=== PATIENT | female | born 1970 | race African-American/Black ===

== ENCOUNTER 2016-07-15 04:56 | Emergency (ER) | payer MEDICAID ==
[~2016-07-15] VITALS: Ht 162.6 cm; Wt 60.0 kg
[2016-07-15] MEDS ORDERED: AZAT50TA9 PO (05:17)
[2016-07-15] MEDS ORDERED: MOME13HF2 INH (05:17)
[2016-07-15] MEDS ORDERED: ALBUTEROL SULFATE 2.5 MG/3 ML NPPB ONE (05:30)
[2016-07-15 06:10] LABS: BLOOD UREA NITROGEN 9 mg/dL (7-18)
[2016-07-15 06:38] VITALS: BP 122/69
== END 2016-07-15 08:03 | disposition home or self-care (01) ==
LOC: ED 07:36
DX: J45.901 Unspecified asthma with (acute) exacerbation (principal); L03.116 Cellulitis of left lower limb
CPT/HCPCS: 36415; 71010; 80048; 82040; 84703; 85025; 93005; 94640; 99285; J7613

== ENCOUNTER 2016-08-09 04:34 | Emergency (ER) | payer MEDICAID ==
[~2016-08-09] VITALS: Ht 165.1 cm; Wt 55.0 kg
[~2016-08-09 04:34] MED LIST: AZAT50TA9 PO; MOME13HF2 INH
[2016-08-09 04:38] VITALS: BP 131/74
[2016-08-09] MEDS ORDERED: SODIUM CHLORIDE 0.9% 1,000ML IVBOLUS ONE (05:30)
== END 2016-08-09 05:59 | disposition left against medical advice (07) ==
LOC: ED 05:57
DX: R55 Syncope and collapse (principal); J45.909 Unspecified asthma, uncomplicated
CPT/HCPCS: 99283

== ENCOUNTER 2017-02-23 03:19 | Emergency (ER) | payer MEDICAID ==
[~2017-02-23] VITALS: Ht 160 cm; Wt 54.1 kg
[2017-02-23 03:20] VITALS: BP 145/88
[2017-02-23] MEDS ORDERED: IBUPROFEN 200 MG TABLET ONE (03:46)
[2017-02-23] MEDS ORDERED: IBUPROFEN 200 MG TABLET PO ONE (04:00)
== END 2017-02-23 04:07 | disposition home or self-care (01) ==
LOC: ED 03:39
DX: S01.511A Laceration without foreign body of lip, initial encounter (principal); K50.90 Crohn's disease, unspecified, without complications; Z88.8 Allergy status to other drugs, medicaments and biological substances; Y04.8XXA Assault by other bodily force, initial encounter; Y93.89 Activity, other specified; Y99.8 Other external cause status; Y92.89 Other specified places as the place of occurrence of the external cause
CPT/HCPCS: 99282; 99283

== ENCOUNTER 2017-02-27 18:26 | Emergency (ER) | payer MEDICAID ==
[~2017-02-27] VITALS: Ht 162.6 cm; Wt 49.4 kg
[2017-02-27 19:05] LABS: HEMATOCRIT 40.2 % (34.6-47.8); HEMOGLOBIN 13.1 g/dL (11.7-16.4); WHITE BLOOD COUNT 5.3 x10^3/uL (3.4-10)
[2017-02-27 19:18] LABS: ASPARTATE AMINO TRANSFERASE 33 U/L (15-37); BLOOD UREA NITROGEN 12 mg/dL (7-18)
[2017-02-27] MEDS ORDERED: KETOROLAC 30 MG/1 ML ONE (20:30)
[2017-02-27] MEDS ORDERED: KETOROLAC 30 MG/1 ML IM ONE (20:30)
[2017-02-27 21:28] VITALS: BP 117/80
== END 2017-02-27 21:30 | disposition home or self-care (01) ==
LOC: ED 20:10
DX: K50.111 Crohn's disease of large intestine with rectal bleeding (principal); G89.29 Other chronic pain
CPT/HCPCS: 36415; 80053; 81001; 84703; 85025; 87086; 96372; 99284; J1885